=== PATIENT | female | born 1980 | race Caucasian/White ===

== ENCOUNTER 2017-07-11 15:10 | Emergency (ER) | payer MEDICAID ==
[2017-07-11] MEDS: KETOROLAC 60 MG INJ IM (16:01)
== END 2017-07-11 17:42 | disposition home or self-care (01) ==
LOC: FTE 15:10
DX: M54.2 Cervicalgia (principal); R07.89 Other chest pain
CPT/HCPCS: 71045; 72040; 81025; 96372; 99284-25